=== PATIENT | female | born 1950 | race African-American/Black ===

== ENCOUNTER 2017-05-22 18:24 | Emergency (ER) | payer MEDICAID, MEDICARE, OTHER ==
[~2017-05-22] VITALS: Ht 167.6 cm; Wt 75.7 kg
[~2017-05-22 18:24] MED LIST: ACETAMINOPHEN-1 EAC1 ORAL; ALEVE220 M2 PO; ASPIRIN81 MG ORAL; BENADRYL25 MG ORAL; FLONASE1 SPRAYS; HYDROCORTISONE28 G2 TP; IBUPROFEN600 MG ORAL; LORATADINE10 M2 PO; METHOTREXATE2.5 MG PO; OMEPRAZOLE40 M1 ORAL; SIMVASTATIN10 MG ORAL; VALIUM5 MG ORAL
--- NOTE | 2017-05-22 18:51 | Emergency Room Report ---
History of Present Illness General Chief Complaint: Upper Respiratory Illness Present Illness HPI 66-year-old female presents to the emergency department complaining of cough, and nasal congestion, rhinorrhea and sore throat that is 8/10 in severity x4 days. Patient denies fevers, chills, neck pain or stiffness. Patient denies recent travel or ill contacts. Patient states she is up-to-date with vaccinations. Patient denies history of asthma, COPD or smoking. She denies rash. She denies changes in voice. Denies CP, Palpitations, LOC, AMS, dizziness , Changes in Vision, Sensation, paresthesias, or a sudden severe headache. Allergies: Coded Allergies: No Known Allergies (Unverified , 02/10/13) Patient History Past Medical History: see triage record Past Surgical History: none Pertinent Family History: none Now: No Immunizations: UTD Reviewed Nursing Documentation: PMH: Agreed, PSxH: Agreed Nursing Documentation-PMH Hx Cardiac Problems: No Hx Cancer: No Hx Neurological Problems: No Review of Systems All Other Systems: negative except mentioned in HPI Physical Exam Vital Signs Date Time Temp Pulse Resp B/P (MAP) Pulse Ox O2 Delivery O2 Flow Rate FiO2 05/22/17 18:40 98.4 94 18 155/80 97 Room Air Sp02 EP Interpretation: reviewed, normal General Appearance: no apparent distress, alert, GCS 15, non-toxic Head: normocephalic, atraumatic Eyes: bilateral eye normal inspection, bilateral eye PERRL ENT: hearing grossly normal, normal pharynx, no angioedema, normal voice, TMs + canals normal, uvula midline, moist mucus membranes, nasal congestion, pharyngeal erythema, other - no exudates Neck: full range of motion, no meningismus, no bony tend, other - surgical scar midline neck no infeciton noted. Respiratory: chest non-tender, lungs clear, normal breath sounds, no wheezing, speaking full sentences Cardiovascular #1: regular rate, rhythm Musculoskeletal: back normal, gait/station normal, normal range of motion, non- tender Neurologic: alert, oriented x3, responsive, motor strength/tone normal, sensory intact, speech normal Skin: normal color, no rash, warm/dry, well hydrated Lymphatic: no adenopathy Medical Decision Making PA Attestation Dr. Workman is my supervising Physician whom patient management has been discussed with. Diagnostic Impression: Primary Impression: Upper respiratory infection, viral Additional Impressions: Pharyngitis Qualified Codes: J02.9 - Acute pharyngitis, unspecified Post-nasal drainage ER Course 66-year-old female presents to the emergency department complaining of cough, and nasal congestion, rhinorrhea and sore throat that is 8/10 in severity x4 days. Patient denies fevers, chills, neck pain or stiffness. Patient denies recent travel or ill contacts. Patient states she is up-to-date with vaccinations. Patient denies history of asthma, COPD or smoking. She denies rash. She denies changes in voice. Denies CP, Palpitations, LOC, AMS, dizziness , Changes in Vision, Sensation, paresthesias, or a sudden severe headache. Ddx considered but are not limited to URI, pneumonia, PE, strep pharyngitis, meningitis. Vital signs: Pt. is afebrile, the remaining VS are WNL H&PE are most consistent with URI- no meningeal signs, oropharynx is not involved, no evidence of bacterial infection at this time. Moderate PND visualized on exam. ORDERS: none required at this time, the diagnosis is clinical ED INTERVENTIONS: None required at this time. --PT. EDUCATION: Discussed antibiotic resistance with inappropriate prescribing of antibiotics for viral illnesses. Discussed signs and symptoms to indicate viral illness versus bacterial illness. I do not suspect an emergent condition at this time. with current presentation pt. is stable for close outpatient follow up with conservative treatments. D/w pt. to return to ED with worsening or new symptoms. DISCHARGE: At this time pt. is stable for d/c to home. Will provide printed patient care instructions, and any necessary prescriptions. Care plan and follow up instructions have been discussed with the patient prior to discharge. Last Vital Signs Date Time Temp Pulse Resp B/P (MAP) Pulse Ox O2 Delivery O2 Flow Rate FiO2 05/22/17 18:40 98.4 94 18 155/80 97 Room Air Disposition: HOME, SELF-CARE Condition: Stable Scripts Cetirizine Hcl/Pseudoephedrine (ZYRTEC-D TABLET) 1 Each Tab.er.12h 1 EACH ORAL Q12HR for 10 Days, #20 TAB Prov: Jillian Hassan P.Tammie 05/22/17 Guaifenesin (Guaifenesin) 1,200 Mg Tab.er.12h 1200 MG PO BID for 10 Days, #20 TAB Prov: Jillian Hassan 05/22/17 Codeine/Promethazine Hcl* (PROMETHAZINE-CODEINE SYRUP*) 118 Ml Syrup 5 ML ORAL Q6H Y for For Cough, #118 ML 0 Refills Prov: Jillian Hassan 05/22/17 Patient Instructions: Pharyngitis, [id number], Upper Respiratory Infection, Adult Additional Instructions: Take medications as directed. Follow up with a Primary Care Provider in 3-5 days, even if your symptoms have resolved. --Please review list of primary care clinics, if you do not already have a primary care provider Return sooner to ED if new symptoms occur, or current symptoms become worse. Do not drink alcohol, drive, or operate heavy machinery while taking cough syrup as this may cause drowsiness. - Please note that this Emergency Department Report was dictated using [employer] forming machine tender technology software, occasionally this can lead to erroneous entry secondary to interpretation by the dictation equipment. Jillian Hassan May 22, 2017 18:51
[2017-05-22] MEDS ORDERED: LORazepam Inj 2mg/ml 1ml ONE (18:57)
[2017-05-22] MEDS ORDERED: Haloperidol 5mg/ml Inj ONE (18:57)
[2017-05-22] MEDS ORDERED: DiphenhydrAMINE 50mg/ml Inj ONE (18:57)
[2017-05-22] MEDS ORDERED: GUAIFENESIN1200 MG PO (19:10)
[2017-05-22] MEDS ORDERED: ZYRTEC-D TABLE1 EACH ORAL (19:10)
[2017-05-22] MEDS ORDERED: PROMETHAZINE-C118 M1 ORAL (19:10)
[2017-05-22 19:19] VITALS: BP 155/80
== END 2017-05-22 19:19 | disposition home or self-care (01) ==
LOC: EMR 18:54
DX: J06.9 Acute upper respiratory infection, unspecified (principal); J02.9 Acute pharyngitis, unspecified; R09.82 Postnasal drip
CPT/HCPCS: 99284

== ENCOUNTER 2018-02-18 19:10 | Emergency (ER) | payer OTHER, MEDICAID ==
[~2018-02-18] VITALS: Ht 167.6 cm; Wt 70.3 kg
[~2018-02-18 19:10] MED LIST changes: +GUAIFENESIN1200 MG PO; +PROMETHAZINE-C118 M1 ORAL; +ZYRTEC-D TABLE1 EACH ORAL
--- NOTE | 2018-02-18 20:05 | Emergency Room Report ---
History of Present Illness General Chief Complaint: Pain Source: Patient Present Illness HPI 67-year-old female presents to the emergency department complaining of 8 out of 10 in severity pain to the right thumb status post hitting her hand on a wall while cleaning last week and she has been having continued pain. Patient also reports sore throat 2 days. Patient denies fevers or chills she reports mild nasal congestion she states her symptoms began after sleeping with a fan pointed directly on her. Patient denies cough, neck pain or stiffness, headache , chest pain or palpitations. Denies numbness tingling or loss of sensation or gross motor movements of the extremities, incontinence of bowel or bladder. Denies AMS, dizziness, Changes in Vision, weakness or a sudden severe headache. Allergies: Coded Allergies: No Known Allergies (Unverified , 02/10/13) Patient History Past Medical History: see triage record, other - RA Past Surgical History: none Pertinent Family History: none Last Menstrual Period: NA Now: No Reviewed Nursing Documentation: PMH: Agreed; PSxH: Agreed Nursing Documentation-PMH Hx Cardiac Problems: No Hx Cancer: No Hx Neurological Problems: No Review of Systems All Other Systems: negative except mentioned in HPI Physical Exam Vital Signs Date Time Temp Pulse Resp B/P (MAP) Pulse Ox O2 Delivery O2 Flow Rate FiO2 02/18/18 19:22 98.1 81 18 135/68 98 Room Air 98.1 Sp02 EP Interpretation: reviewed, normal General Appearance: no apparent distress, alert, GCS 15, non-toxic Head: normocephalic, atraumatic Eyes: bilateral eye normal inspection, bilateral eye PERRL ENT: hearing grossly normal, normal voice, TMs + canals normal, uvula midline, moist mucus membranes, other - No tonsillar swelling or exudates. Neck: full range of motion, no meningismus Respiratory: lungs clear, normal breath sounds, speaking full sentences Cardiovascular #1: regular rate, rhythm, no edema, normal capillary refill Cardiovascular #2: 2+ radial (R), 2+ radial (L) Musculoskeletal: back normal, gait/station normal, normal range of motion, non- tender Neurologic: alert, oriented x3, responsive, motor strength/tone normal, sensory intact, speech normal, grossly normal Psychiatric: judgement/insight normal Skin: normal color, no rash, warm/dry, well hydrated Lymphatic: no adenopathy Medical Decision Making PA Attestation Dr. Fu is my supervising Physician whom patient management has been discussed with. Diagnostic Impression: Primary Impression: Pharyngitis Qualified Codes: J02.9 - Acute pharyngitis, unspecified Additional Impression: Contusion of thumb, right Qualified Codes: S60.011A - Contusion of right thumb without damage to nail, initial encounter ER Course 67-year-old female presents to the emergency department complaining of 8 out of 10 in severity pain to the right thumb status post hitting her hand on a wall while cleaning last week and she has been having continued pain. Patient also reports sore throat 2 days. Patient denies fevers or chills she reports mild nasal congestion she states her symptoms began after sleeping with a fan pointed directly on her. Patient denies cough, neck pain or stiffness, headache , chest pain or palpitations. Denies numbness tingling or loss of sensation or gross motor movements of the extremities, incontinence of bowel or bladder. Denies AMS, dizziness, Changes in Vision, weakness or a sudden severe headache. Ddx considered but are not limited to Fracture, dislocation, contusion, Sprain/ Strain/Spasm, strep, pharyngitis, postnasal drainage, CONTINUOUS IMPROVEMENT SPECIALIST just to name a few. Vital signs: are WNL, pt. is afebrile H&PE are most consistent with musculoskeletal injury will perform imaging to r/ o fractures/dislocations. ORDERS: - X-ray Right hand - negative for fx, Dislocation, or significant soft tissue injury, per preliminary read in ED, and signed by CARINA Hassan, my supervising physician has reviewed, and agrees with my interpretation. ED INTERVENTIONS: - Tylenol PO - Thumb spika Splint applied to right hand by photovoltaic testing technician. Pt. remains neurovascularly intact. --pls note. pt. taking methotrexate. DISCHARGE: At this time pt. is stable for d/c to home. Will provide printed patient care instructions, and any necessary prescriptions. Care plan and follow up instructions have been discussed with the patient prior to discharge. Other X-Ray Diagnostic Results Other X-Ray Diagnostic Results : X-Ray ordered: right hand # of Views/Limited Vs Complete: 3 View Indication: Pain EP Interpretation: Yes CARINA Xray: Interpretation reviewed, by supervising MD, and agrees with findings. Interpretation: no dislocation, no soft tissue swelling, no fractures, other - osteophytes and degenerative changes Impression: No acute disease Electronically Signed by: Jillian Hassan PA-C Last Vital Signs Date Time Temp Pulse Resp B/P (MAP) Pulse Ox O2 Delivery O2 Flow Rate FiO2 02/18/18 19:22 98.1 81 18 135/68 98 Room Air 98.1 Disposition: HOME, SELF-CARE Condition: Stable Scripts Lidocaine HCl 2% Viscous (Lidocaine HCl 2% Viscous) 100 Ml Solution 15 ML ORAL QID, #200 ML Prov: Jillian Hassan 02/18/18 Loratadine (CLARITIN) 10 Mg Capsule 10 MG ORAL DAILY, #14 CAP Prov: Jillian Hassan 02/18/18 Acetaminophen* (TYLENOL EXTRA STRENGTH*) 500 Mg Tablet 500 MG ORAL Q8H, #15 TAB 0 Refills Prov: Jillian Hassan 02/18/18 Acetaminophen* (TYLENOL EXTRA STRENGTH*) 500 Mg Tablet 500 MG ORAL Q6H, #15 TAB 0 Refills Prov: Jillian Hassan 02/18/18 Patient Instructions: Arthritis, [id number], Contusion, [id number], Sore Throat, Dczy-yw-Ghes Additional Instructions: Take medications as directed. Follow up with a Primary Care Provider in 3-5 days, even if your symptoms have resolved. --Please review list of primary care clinics, if you do not already have a primary care provider Return sooner to ED if new symptoms occur, or current symptoms become worse. - Please note that this Emergency Department Report was dictated using [employer] binding worker technology software, occasionally this can lead to erroneous entry secondary to interpretation by the dictation equipment. Jillian Hassan Feb 18, 2018 20:05
--- NOTE | 2018-02-18 20:38 | Diagnostic Imaging Report ---
EXAM: XR Right Hand Complete, 3 or More Views CLINICAL HISTORY: PAIN TECHNIQUE: Frontal, lateral and oblique views of the right hand. COMPARISON: No relevant prior studies available. FINDINGS: Bones/joints: Unremarkable. No acute fracture. No dislocation. Soft tissues: Unremarkable. No radiopaque foreign body. IMPRESSION: Normal right hand x-rays.
[2018-02-18] MEDS ORDERED: TYLENOL EXTRA500 MG ORAL ×2 (20:41→20:44)
[2018-02-18 20:44] VITALS: BP 153/84
[2018-02-18] MEDS ORDERED: CLARITIN10 M2 ORAL (20:44)
[2018-02-18] MEDS ORDERED: LIDOCAINE VISC100 ML ORAL (20:47)
[2018-02-18 20:51] VITALS: BP 153/84
== END 2018-02-18 20:56 | disposition home or self-care (01) ==
LOC: EMR 19:42
DX: S60.011A Contusion of right thumb without damage to nail, initial encounter (principal); W22.01XA Walked into wall, initial encounter; Y92.9 Unspecified place or not applicable; J02.9 Acute pharyngitis, unspecified
CPT/HCPCS: 99283

== ENCOUNTER 2019-01-26 13:04 | Emergency (ER) | payer OTHER, MEDICAID ==
[~2019-01-26] VITALS: Ht 167.6 cm; Wt 70.8 kg
[~2019-01-26 13:04] MED LIST changes: +CLARITIN10 M2 ORAL; +LIDOCAINE VISC100 ML ORAL; +TYLENOL EXTRA500 MG ORAL
--- NOTE | 2019-01-26 13:18 | NUR ---
ED Nurse Note: pt walked in due to left lower rib pain started 3 months ago, pt denies trauma. pt stated she was checked by the pcp, ultrasound was done to her and nothing was found as verbalized by the pt, pcp advised pt to go to the ed for xray of the chest. pt is complining of 7/10 pain. pt not in acute distress. will continue to monitor.
[2019-01-26 13:20] VITALS: BP 134/68
--- NOTE | 2019-01-26 13:37 | NUR ---
ED Nurse Note: pt was seen by paolo, pt able to give urine sample, blood drawn and sent to lab.
--- NOTE | 2019-01-26 13:45 | NUR ---
ED Nurse Note: pt went to ct with tech
[2019-01-26 13:47] LABS: HEMATOCRIT 36.5 % (37.0-47.0); MEAN CORPUSCULAR VOLUME 96 FL (80-99); NEUTROPHILS % (AUTO) 53.3 % (45.0-75.0); PLATELET COUNT 257 K/UL (150-450); WHITE BLOOD COUNT 4.9 K/UL (4.8-10.8)
[2019-01-26 13:48] LABS: BASOPHILS % (AUTO) 2.3 % (0.0-2.0); EOSINOPHILS % (AUTO) 2.3 % (0.0-3.0); LYMPHOCYTES % (AUTO) 28.9 % (20.0-45.0); MONOCYTES % (AUTO) 13.2 % (1.0-10.0)
--- NOTE | 2019-01-26 13:53 | NUR ---
ED Nurse Note: pt went back from ct with tech
[2019-01-26 13:58] LABS: ANION GAP 11 mmol/L (5-15); BLOOD UREA NITROGEN 15 mg/dL (7-18); CALCIUM 9.4 MG/DL (8.5-10.1); CARBON DIOXIDE 26 MMOL/L (21-32); CHLORIDE 108 MMOL/L (98-107); CREATININE 0.8 MG/DL (0.55-1.30); POTASSIUM 3.8 MMOL/L (3.5-5.1); SODIUM 145 MMOL/L (136-145)
[2019-01-26 14:03] LABS: ALANINE AMINOTRANSFERASE 20 U/L (12-78); ALBUMIN 3.6 G/DL (3.4-5.0); ALBUMIN/GLOBULIN RATIO 0.8 (1.0-2.7); ALKALINE PHOSPHATASE 72 U/L (46-116); ASPARTATE AMINO TRANSFERASE 10 U/L (15-37); BILIRUBIN,TOTAL 0.4 MG/DL (0.2-1.0)
[2019-01-26] MEDS ORDERED: Ketorolac 60mg Inj IM ONE (14:30)
[2019-01-26 14:33] LABS: APPEARANCE,URINE CLEAR; BILIRUBIN, URINE NEGATIVE (NEGATIVE); COLOR,URINE YELLOW; GLUCOSE, URINE (UA) NEGATIVE (NEGATIVE); KETONES,URINE NEGATIVE (NEGATIVE); LEUKOCYTE ESTERASE ,URINE NEGATIVE (NEGATIVE); NITRITE,URINE NEGATIVE (NEGATIVE); PH,URINE 7 (4.5-8.0); PROTEIN,URINE NEGATIVE (NEGATIVE); UROBILINOGEN,URINE 4 MG/DL (0.0-1.0)
[2019-01-26] MEDS ORDERED: TRAMADOL HCL50 MG ORAL (14:33)
[2019-01-26 14:45] VITALS: BP 134/68
--- NOTE | 2019-01-26 14:45 | NUR ---
ER DISCHARGE NOTE: Patient is cleared to be discharged per ERMD, pt is aox4, on room air, with stable vital signs. pt was given dc and prescription instructions, pt was able to verbalize understanding, pt id band removed without complications. pt is able to ambulate with steady gait. pt took all belongings.
--- NOTE | 2019-01-26 14:53 | Emergency Room Report ---
History of Present Illness General Chief Complaint: Pain Source: Patient, Medical Record Present Illness HPI Patient presents with complaints of fairly specific pinpoint discomfort left lower mid axillary rib cage discomfort Patient reports that she has been having discomfort there over the past 4 to 5 months she feels the pain uncomfortable When she touches the area also when she tries to stand up denies any other chest pain or shortness of breath denies any pleurisy Denies any vomiting or diarrhea denies any fevers or chills Denies any focal weakness Patient reports that she has had outside CAT scan imaging and ultrasound testing which have not shown any results Patient denies any abdominal pain denies any recent trauma however reports that 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 Patient also reports that her primary physician had mentioned possibly getting a picture of her chest Allergies: Coded Allergies: No Known Allergies (Unverified , 02/10/13) Patient History Past Medical History: see triage record Pertinent Family History: none Last Menstrual Period: N/A Reviewed Nursing Documentation: PMH: Agreed; PSxH: Agreed Nursing Documentation-PMH Past Medical History: No History, Except For Hx Cardiac Problems: No - RA Hx Cancer: No Hx Neurological Problems: No Review of Systems All Other Systems: negative except mentioned in HPI Physical Exam Vital Signs Date Time Temp Pulse Resp B/P (MAP) Pulse Ox O2 Delivery O2 Flow Rate FiO2 01/26/19 13:11 98.1 70 16 134/68 (90) 97 Room Air Sp02 EP Interpretation: reviewed, normal General Appearance: well appearing, no apparent distress Head: normocephalic, atraumatic Eyes: bilateral eye PERRL, bilateral eye EOMI ENT: hearing grossly normal, normal pharynx, TMs + canals normal, uvula midline Neck: full range of motion, supple, no meningismus, no bony tend Respiratory: lungs clear, normal breath sounds, no rhonchi, no respiratory distress, no retraction, no accessory muscle use Cardiovascular #1: regular rate, rhythm Gastrointestinal: non tender, soft Genitourinary: no CVA tenderness Musculoskeletal: other - Patient has fairly pinpoint specific discomfort over the mid axillary rib cage area on the lower aspect of the rib cage no obvious erythema or rash, no swelling Neurologic: alert, oriented x3, responsive Psychiatric: normal inspection Skin: no rash Lymphatic: normal inspection Medical Decision Making Diagnostic Impression: Primary Impression: Muscle strain of chest wall ER Course Patient has fairly pinpoint discomfort however given the duration of symptoms and no other imaging of the chest area CT was obtained there are some nonspecific findings which include Perihilar lymph nodes and also axillary lymph nodes that are larger than usual Otherwise no obvious rib cage reading or pathology Patient's blood work also remains stable from previous patient was discussed about her CAT scan findings She does have a primary physician and will require close follow-up Remains hemodynamically stable however given the nonspecific abnormalities Will require evaluation for differential such as carcinoma Labs Test 01/26/19 13:28 White Blood Count 4.9 K/UL (4.8-10.8) Red Blood Count 3.80 M/UL (4.20-5.40) Hemoglobin 12.0 G/DL (12.0-16.0) Hematocrit 36.5 % (37.0-47.0) Mean Corpuscular Volume 96 FL (80-99) Mean Corpuscular Hemoglobin 31.5 PG (27.0-31.0) Mean Corpuscular Hemoglobin Concent 32.8 G/DL (32.0-36.0) Red Cell Distribution Width 16.0 % (11.6-14.8) Platelet Count 257 K/UL (150-450) Mean Platelet Volume 5.8 FL (6.5-10.1) Neutrophils (%) (Auto) 53.3 % (45.0-75.0) Lymphocytes (%) (Auto) 28.9 % (20.0-45.0) Monocytes (%) (Auto) 13.2 % (1.0-10.0) Eosinophils (%) (Auto) 2.3 % (0.0-3.0) Basophils (%) (Auto) 2.3 % (0.0-2.0) Urine Color Yellow Urine Appearance Clear Urine pH 7 (4.5-8.0) Urine Specific [place] 1.015 (1.005-1.035) Urine Protein Negative (NEGATIVE) Urine Glucose (UA) Negative (NEGATIVE) Urine Ketones Negative (NEGATIVE) Urine Blood Negative (NEGATIVE) Urine Nitrite Negative (NEGATIVE) Urine Bilirubin Negative (NEGATIVE) Urine Urobilinogen 4 MG/DL (0.0-1.0) Urine Leukocyte Esterase Negative (NEGATIVE) Sodium Level 145 MMOL/L (136-145) Potassium Level 3.8 MMOL/L (3.5-5.1) Chloride Level 108 MMOL/L (98-107) Carbon Dioxide Level 26 MMOL/L (21-32) Anion Gap 11 mmol/L (5-15) Blood Urea Nitrogen 15 mg/dL (7-18) Creatinine 0.8 MG/DL (0.55-1.30) Estimat Glomerular Filtration Rate > 60 mL/min (>60) Glucose Level 98 MG/DL (74-106) Calcium Level 9.4 MG/DL (8.5-10.1) Total Bilirubin 0.4 MG/DL (0.2-1.0) Aspartate Amino Transf (AST/SGOT) 10 U/L (15-37) Alanine Aminotransferase (ALT/SGPT) 20 U/L (12-78) Alkaline Phosphatase 72 U/L (46-116) Total Protein 8.3 G/DL (6.4-8.2) Albumin 3.6 G/DL (3.4-5.0) Globulin 4.7 g/dL Albumin/Globulin Ratio 0.8 (1.0-2.7) Lipase 143 U/L (73-393) Urine Opiates Screen Negative (NEGATIVE) Urine Barbiturates Screen Negative (NEGATIVE) Phencyclidine (PCP) Screen Negative (NEGATIVE) Urine Amphetamines Screen Negative (NEGATIVE) Urine Benzodiazepines Screen Negative (NEGATIVE) Urine Cocaine Screen Negative (NEGATIVE) Urine Marijuana (THC) Screen Positive (NEGATIVE) CT/MRI/US Diagnostic Results CT/MRI/US Diagnostic Results : Impression CT chest: Nonspecific perihilar lymph nodes, shotty nonspecific lymph nodes in the axilla Last Vital Signs Date Time Temp Pulse Resp B/P (MAP) Pulse Ox O2 Delivery O2 Flow Rate FiO2 01/26/19 13:20 98.1 70 16 134/68 97 Room Air Status: improved Disposition: HOME, SELF-CARE Condition: Improved Scripts Tramadol Hcl* (ULTRAM*) 50 Mg Tablet 50 MG ORAL Q8HR PRN for For Pain, #20 TAB 0 Refills Prov: Abelino Zee DO 01/26/19 Referrals: [facility],REFERRING (PCP) [facility] Patient Instructions: Costochondritis, [id number] Additional Instructions: The CAT scan of the chest today has shown some abnormalities. It does reveal mildly prominent mediastinal lymph nodes nonspecific axillary lymph nodes. While these are nonspecific and do not appear to be the main reason for your left lower rib cage pain they do require close outpatient follow-up. These can be signs of different types of medical conditions such as cancer. Patient is provided with the discharge instructions notified to follow up with primary doctor in the next 2-3 days otherwise return to the er with any worsening symptoms. Please note that this report is being documented using [employer] technology. This can lead to erroneous entry secondary to incorrect interpretation by the dictating instrument. Abelino Zee DO Jan 26, 2019 14:53
--- NOTE | 2019-01-27 11:34 | Diagnostic Imaging Report ---
Indication: Chest pain Technique: Continuous helical transaxial imaging of the chest was obtained from the thoracic inlet to the upper abdomen. No intravenous contrast was administered. Coronal 2-D reformats were also obtained. Total Dose length Product (DLP): 647.[address] Dose Index Volume (CTDIvol): 17.67 mGy Comparison: none Findings: There are reticular densities at the lung bases nonspecific. Some hiatal hernia is present. Tiny hypodensity left kidney too small to characterize. There is a small Bochdalek hernia posterior medial right lung base. No airspace disease identified. No adenopathy seen. Minimal calcification of aorta noted. IMPRESSION: No acute findings. Basilar interstitial opacities nonspecific. Atherosclerotic disease Tiny hypodensity in the left kidney too small to characterize on this study. [facility] has communicated the preliminary results to the Emergency Department. Their findings are largely concordant with this report. The CT scanner at [facility] is accredited by the [employer] and the scans are performed using dose optimization techniques as appropriate to a performed exam including Automatic Exposure control.
== END 2019-01-26 14:45 | disposition home or self-care (01) ==
LOC: EMR 13:42
DX: S29.011A Strain of muscle and tendon of front wall of thorax, initial encounter (principal); X58.XXXA Exposure to other specified factors, initial encounter; Y92.9 Unspecified place or not applicable; M06.9 Rheumatoid arthritis, unspecified
CPT/HCPCS: 36415; 71250; 80053; 80307; 81003; 83690; 85025; 96372; 99284

== ENCOUNTER 2019-09-27 09:36 | Emergency (ER) | payer OTHER, MEDICAID ==
[~2019-09-27] VITALS: Ht 170.2 cm; Wt 72.6 kg
[~2019-09-27 09:36] MED LIST changes: +TRAMADOL HCL50 MG ORAL
--- NOTE | 2019-09-27 09:49 | NUR ---
ED Nurse Note: Pt walked in from home c/o sore throat and dizziness x 1 week. Pt denies fever/nausea/vomiting/diarrhea. Pt reports right shoulder pain x 1 month, but denies injury. Respirations even and unlabored on room air. Vitals stable as documented.
[2019-09-27 09:55] VITALS: BP 134/69
[2019-09-27] MEDS ORDERED: GABAPENTIN100 MG ORAL (09:58)
[2019-09-27] MEDS ORDERED: FOLIC ACID1 MG ORAL (09:58)
[2019-09-27] MEDS ORDERED: VITAMIN D32400 UNIT/ MC (09:58)
[2019-09-27] MEDS ORDERED: RESTASIS1 EACH BOTH EYES (09:58)
[2019-09-27] MEDS ORDERED: Acetaminophen 500mg (ES) tab ORAL ONE (10:00)
[2019-09-27] MEDS ORDERED: Ketorolac 30mg Inj IM ONE (10:00)
[2019-09-27] MEDS ORDERED: Albuterol ud Inhalation HHN ONE (10:00)
[2019-09-27 10:29] LABS: ANION GAP 14 mmol/L (5-15); BLOOD UREA NITROGEN 9 mg/dL (7-18); CALCIUM 9.3 MG/DL (8.5-10.1); CARBON DIOXIDE 24 MMOL/L (21-32); CHLORIDE 105 MMOL/L (98-107); CREATININE 0.8 MG/DL (0.55-1.30); SODIUM 143 MMOL/L (136-145)
[2019-09-27 10:30] LABS: BASOPHILS % (AUTO) 0.8 % (0.0-2.0); EOSINOPHILS % (AUTO) 0.7 % (0.0-3.0); HEMATOCRIT 36.4 % (37.0-47.0); HEMOGLOBIN 12.4 G/DL (12.0-16.0); LYMPHOCYTES % (AUTO) 9.4 % (20.0-45.0); MEAN CORPUSCULAR VOLUME 94 FL (80-99); MONOCYTES % (AUTO) 8.6 % (1.0-10.0); NEUTROPHILS % (AUTO) 80.4 % (45.0-75.0); PLATELET COUNT 236 K/UL (150-450); RED BLOOD COUNT 3.88 M/UL (4.20-5.40); RED CELL DISTRIBUTION WIDTH 11.9 % (11.6-14.8); WHITE BLOOD COUNT 10.2 K/UL (4.8-10.8)
[2019-09-27 10:34] LABS: ALANINE AMINOTRANSFERASE 20 U/L (12-78); ALBUMIN 3.1 G/DL (3.4-5.0); ALBUMIN/GLOBULIN RATIO 0.6 (1.0-2.7); ALKALINE PHOSPHATASE 79 U/L (46-116); ASPARTATE AMINO TRANSFERASE 15 U/L (15-37); BILIRUBIN,TOTAL 0.3 MG/DL (0.2-1.0)
--- NOTE | 2019-09-27 10:38 | Emergency Room Report ---
History of Present Illness General Chief Complaint: Generalized Weakness Source: Patient Present Illness HPI Patient is a 69-year-old female who presents the ER complaining of flulike symptoms for the past week. Patient complains of generalized body aches, weakness, cough, nasal congestion and wheezing. She denies any chest pain or shortness of breath. She denies any recent travel. She denies any history of smoking. She denies any abdominal pain, nausea or vomiting. She denies any recent travel. Patient is ambulatory and accompanied by her niece. Allergies: Coded Allergies: No Known Allergies (Unverified , 02/10/13) Patient History Reviewed Nursing Documentation: PMH: Agreed; PSxH: Agreed Nursing Documentation-PMH Hx Cardiac Problems: Yes - enlarged heart Hx Cancer: No Hx Neurological Problems: No Review of Systems All Other Systems: negative except mentioned in HPI Physical Exam Vital Signs Date Time Temp Pulse Resp B/P (MAP) Pulse Ox O2 Delivery O2 Flow Rate FiO2 09/27/19 09:39 97.9 115 22 134/69 (90) 93 Room Air Sp02 EP Interpretation: reviewed, normal General Appearance: no apparent distress, alert, GCS 15, non-toxic Head: normocephalic, atraumatic Eyes: bilateral eye normal inspection, bilateral eye PERRL ENT: hearing grossly normal, no angioedema, normal voice, dry mucus membranes Neck: full range of motion, supple/symm/no masses Respiratory: chest non-tender, speaking full sentences, wheezing Cardiovascular #1: no edema, tachycardia Cardiovascular #2: 2+ carotid (R), 2+ carotid (L), 2+ radial (R), 2+ radial (L) , 2+ dorsalis pedis (R), 2+ dorsalis pedis (L) Gastrointestinal: normal bowel sounds, non tender, soft, non-distended, no guarding, no rebound Rectal: deferred Genitourinary: normal inspection, no CVA tenderness Musculoskeletal: back normal, normal range of motion, calf tenderness, gait/ station normal, non-tender Neurologic: alert, motor strength/tone normal, oriented x3, sensory intact, responsive, speech normal Psychiatric: judgement/insight normal, memory normal, mood/affect normal, no suicidal/homicidal ideation Skin: no rash Lymphatic: no adenopathy Medical Decision Making Diagnostic Impression: Primary Impression: Bronchopneumonia ER Course Patient treated with nebulizer treatment and IV antibiotics. Lactate less than 2. Vital signs have been stable. She describes improvement after IV fluids as well as fever control. After discussing risks and benefits of further diagnostics, treatment plans, as well as indications for and risks of admission , the patient is agreeable to being discharged home. I have explained that their evaluation and treatment in the emergency department today is an important step towards them achieving better health but that their evaluation today is not intended to replace further evaluation and treatment by a physician in their local clinic. I have explained that while the current findings suggest no immediate life threatening emergency they will require further evaluation and treatment by a physician of their choice in their area. They understand that it will be necessary for them to review the final reports of their ED visit with their clinic physician. We have reviewed indications for return to the Emergency Department. I have explained that additional time may need to pass and/or additional testing as an outpatient may be necessary before a definitive diagnosis can be made. They tell me they are willing to follow up as instructed within the timeframe I recommend. They appear to understand what we discussed. Additionally they understand that if they are unable to be seen by an outpatient physician they are welcome, and in fact should, return to the Emergency Department for a repeat evaluation. The patient is stable at time of discharge. EKG Diagnostic Results EKG Time: 10:16 EP Interpretation: MD Ava Rate: tachycardiac ST Segments: no acute changes ASA given to the pt in ED: No Rhythm Strip Diag. Results Rhythm Strip Time: 10:38 EP Interpretation: yes - MD Ava Rate: 98 Rhythm: no PVC's, no ectopy Last Vital Signs Date Time Temp Pulse Resp B/P (MAP) Pulse Ox O2 Delivery O2 Flow Rate FiO2 09/27/19 09:55 97.9 106 22 134/69 94 Room Air Disposition: HOME, SELF-CARE Condition: Stable Scripts Levofloxacin* (LEVAQUIN*) 750 Mg Tablet 750 MG ORAL DAILY for 7 Days, TAB Prov: Eliza Escalante M.D. 09/27/19 Ibuprofen* (MOTRIN*) 600 Mg Tablet 600 MG ORAL Q8H PRN for For Pain, #30 TAB 0 Refills Prov: Eliza Escalante M.D. 09/27/19 Albuterol Sulfate* (ALBUTEROL SULFATE MDI*) 8.5 Gm Hfa.aer.ad 2 PUFF INH Q4H PRN for cough/wheezing, #1 EA 0 Refills Prov: Eliza Escalante M.D. 09/27/19 Referrals: [facility],REFERR[facility] (PCP) Additional Instructions: Patient discharged in stable improved condition with outpatient follow-up and strict return precautions Eliza Escalante M.D. Sep 27, 2019 10:38
--- NOTE | 2019-09-27 11:02 | NUR ---
ED Nurse Note: pt resting in bed without s/s of distress. vital signs stable as documented.
[2019-09-27 11:03] VITALS: BP 145/72
[2019-09-27 11:06] LABS: APPEARANCE,URINE CLEAR; BILIRUBIN, URINE NEGATIVE (NEGATIVE); COLOR,URINE PALE YELLOW; GLUCOSE, URINE (UA) NEGATIVE (NEGATIVE); KETONES,URINE NEGATIVE (NEGATIVE); LEUKOCYTE ESTERASE ,URINE NEGATIVE (NEGATIVE); NITRITE,URINE NEGATIVE (NEGATIVE); PH,URINE 7 (4.5-8.0); PROTEIN,URINE NEGATIVE (NEGATIVE); UROBILINOGEN,URINE NORMAL MG/DL (0.0-1.0)
[2019-09-27] MEDS ORDERED: IBUPROFEN600 MG ORAL (11:49)
[2019-09-27] MEDS ORDERED: ALBUTEROL SULF8.5 GM INH (11:49)
[2019-09-27] MEDS ORDERED: LEVAQUIN750 MG ORAL (11:49)
--- NOTE | 2019-09-27 12:05 | NUR ---
ED Nurse Note: Pt discharged, pt just awaiting antibiotic therapy to be finished before departing
[2019-09-27] MEDS ORDERED: GUAIFENESIN-CO118 M1 ORAL (12:11)
--- NOTE | 2019-09-27 12:17 | Diagnostic Imaging Report ---
Indication: Dyspnea Comparison: 04/14/2014 A single view chest radiograph was obtained. Findings: Cardiomediastinal appearance is within normal limits for age. The lungs are clear. Pulmonary vascularity is appropriate. The diaphragmatic contour is smooth and costophrenic angles are sharp. No pleural effusions are identified. The bones are unremarkable. Impression: No acute findings
[2019-09-27 12:27] VITALS: BP 142/75
--- NOTE | 2019-09-27 12:27 | NUR ---
ER DISCHARGE NOTE: Patient is cleared to be discharged per ERMD, pt is aox4, on room air, with stable vital signs as documented. pt was given dc and prescription instructions, pt was able to verbalize understanding, pt id band and iv site removed without complications. pt is able to ambulate with steady gait. pt took all belongings.
== END 2019-09-27 12:27 | disposition home or self-care (01) ==
LOC: EMR 10:08
DX: J18.0 Bronchopneumonia, unspecified organism (principal); R53.1 Weakness
CPT/HCPCS: 36415; 71045; 80053; 81003; 83605; 83735; 85025; 85610; 85730; 86710; 87040; 93005; 96361; 96365; 96372; 99284; J1885; J1956; J7030

== ENCOUNTER 2020-05-03 21:30 | Emergency (ER) | payer OTHER, MEDICAID ==
[~2020-05-03] VITALS: Ht 170.2 cm; Wt 77.1 kg
[~2020-05-03 21:30] MED LIST changes: +ALBUTEROL SULF8.5 GM INH; +FOLIC ACID1 MG ORAL; +GABAPENTIN100 MG ORAL; +GUAIFENESIN-CO118 M1 ORAL; +LEVAQUIN750 MG ORAL; +RESTASIS1 EACH BOTH EYES; +VITAMIN D32400 UNIT/ MC
--- NOTE | 2020-05-03 21:50 | NUR ---
ED Nurse Note: wheelchair assist to ed c/o LT leg tingling and pain for 3 days. Pt denies fall and trauma. PT stated she is ambulatory at home; but pain is 10/10, sharp and tingling. Pt stated LT hip is slightly swollen. hx rheumatoid arthritis. changed into gown; attached to monitor. patient ao4 with no acute distress while immobile. facial grimacing noted upon movement of left lower extremity; localized to hip. vitals stable. all safety measures met.
--- NOTE | 2020-05-03 22:00 | NUR ---
ED Nurse Note: iv access established. blood collected; sent down to lab. unable to collect urine at this time; patient states will provide when able; refused straight cath. imaging done at bedside with respiratory support technician.
--- NOTE | 2020-05-03 22:06 | Emergency Room Report ---
History of Present Illness General Chief Complaint: Lower Extremity Injury Source: Patient Present Illness HPI The patient presents with 2 to 3 days of left hip pain. She also feels swelling in that area. The pain is severe. She tried Tylenol with minimal relief. She denies any fevers or chills. There was no trauma. 2 weeks ago she had some bite on her leg but this seems to have resolved. There is no calf pain or edema. She rates the pain 10/10. It is aching and worse when she tries to move the hip or walk. It is nonradiating. She denies any numbness. No sore throat, chest pain, palpitations, nausea, vomiting, diarrhea, dysuria, abdominal pain, shortness of breath, depression, anxiety, visual changes, dizziness, headache. Allergies: Coded Allergies: No Known Allergies (Unverified , 02/10/13) COVID-19 Screening Contact w/high risk pt: No Experienced COVID-19 symptoms?: No COVID-19 Testing performed [employer]IN[employer] IN[employer]CTOR: No Patient History Past Medical History: see triage record Past Surgical History: hysterectomy, other - Lumpectomy Social History: Denies: smoking Social History Narrative Brought to emergency department by cousin Reviewed Nursing Documentation: PMH: Agreed; PSxH: Agreed Nursing Documentation-PMH Hx Cardiac Problems: Yes - enlarged heart Hx Cancer: No Hx Neurological Problems: No Review of Systems All Other Systems: negative except mentioned in HPI Physical Exam Vital Signs Date Time Temp Pulse Resp B/P (MAP) Pulse Ox O2 Delivery O2 Flow Rate FiO2 05/03/20 21:40 98.8 107 16 113/72 (86) 98 Room Air Sp02 EP Interpretation: reviewed, normal General Appearance: well appearing, no apparent distress, GCS 15 Head: normocephalic Eyes: bilateral eye normal inspection, bilateral eye PERRL, bilateral eye EOMI ENT: other - Wearing a mask Neck: supple Respiratory: lungs clear, normal breath sounds Cardiovascular #1: regular rate, rhythm Cardiovascular #2: 2+ radial (R), 2+ dorsalis pedis (L) Gastrointestinal: normal inspection, normal bowel sounds, non tender, no mass, non-distended Musculoskeletal: back normal, no calf tenderness, pelvis stable, gait/station normal, tender - Left hip with compression and passive range of motion lower back nontender Neurologic: alert, distal neuro normal, oriented x3 Psychiatric: mood/affect normal Skin: no rash - In particular no evidence of prior bite, warm/dry Medical Decision Making Diagnostic Impression: Primary Impression: Left hip pain Additional Impressions: Arthritis UTI (urinary tract infection) Qualified Codes: N30.00 - Acute cystitis without hematuria ER Course Patient presents with left hip pain. Differential includes bursitis, gout, arthritis, septic hip amongst others. She has no fever and therefore the latter is less likely. Evaluation with x-rays and labs. Patient treated with a dose of Toradol. Labs remarkable for normal white count. Elevated C-reactive protein. Hip x-ray with degenerative changes. Urinalysis with pyuria. Macrobid given for UTI. Patient improved after Toradol. Pain is decreased to 5/10. She declines more pain medication at this time. Patient ambulatory without limp. Patient stable for outpatient observation and treatment. Laboratory Tests Test 05/03/20 22:15 05/03/20 23:20 White Blood Count 8.8 K/UL (4.8-10.8) Red Blood Count 3.75 M/UL (4.20-5.40) L Hemoglobin 12.2 G/DL (12.0-16.0) Hematocrit 37.1 % (37.0-47.0) Mean Corpuscular Volume 99 FL (80-99) Mean Corpuscular Hemoglobin 32.6 PG (27.0-31.0) H Mean Corpuscular Hemoglobin Concent 33.0 G/DL (32.0-36.0) Red Cell Distribution Width 13.6 % (11.6-14.8) Platelet Count 249 K/UL (150-450) Mean Platelet Volume 7.4 FL (6.5-10.1) Neutrophils (%) (Auto) 76.0 % (45.0-75.0) H Lymphocytes (%) (Auto) 14.2 % (20.0-45.0) L Monocytes (%) (Auto) 6.7 % (1.0-10.0) Eosinophils (%) (Auto) 0.2 % (0.0-3.0) Basophils (%) (Auto) 2.8 % (0.0-2.0) H Erythrocyte Sedimentation Rate 85 MM/HR (0-30) H Prothrombin Time 11.1 SEC (9.30-11.50) Prothrombin Time INR 1.0 (0.9-1.1) Activated Partial Thromboplast Time 27 SEC (23-33) Uric Acid 4.7 MG/DL (2.6-7.2) C-Reactive Protein, Quantitative 5.6 mg/dL (0.00-0.90) H Urine Color Pale yellow Urine Appearance Clear Urine pH 5 (4.5-8.0) Urine Specific [place] 1.010 (1.005-1.035) Urine Protein Negative (NEGATIVE) Urine Glucose (UA) Negative (NEGATIVE) Urine Ketones Negative (NEGATIVE) Urine Blood Negative (NEGATIVE) Urine Nitrite Negative (NEGATIVE) Urine Bilirubin Negative (NEGATIVE) Urine Urobilinogen Normal MG/DL (0.0-1.0) Urine Leukocyte Esterase 3+ (NEGATIVE) H Urine RBC 0-2 /HPF (0 - 2) Urine WBC 15-20 /HPF (0 - 2) H Urine Squamous Epithelial Cells Occasional /LPF Urine Transitional Epithelial Cells Few /LPF (NONE) H Urine Bacteria Occasional /HPF (NONE) Other X-Ray Diagnostic Results Other X-Ray Diagnostic Results : X-Ray ordered: Left hip # of Views/Limited Vs Complete: 3 View Indication: Pain EP Interpretation: Yes Interpretation: no dislocation, no soft tissue swelling, no fractures, other - Degenerative changes Impression: Other Electronically Signed by: Electronically signed by Duong Florez MD Last Vital Signs Date Time Temp Pulse Resp B/P (MAP) Pulse Ox O2 Delivery O2 Flow Rate FiO2 05/04/20 01:00 98.8 89 16 113/72 98 Room Air Status: improved Disposition: HOME, SELF-CARE Condition: Improved Scripts Ibuprofen* (MOTRIN*) 600 Mg Tablet 600 MG ORAL Q8H PRN for FOR PAIN, #16 TAB 0 Refills Prov: Duong Florez MD 05/04/20 Nitrofurantoin Monohyd/M-Cryst* (MACROBID 100 MG*) 100 Mg Capsule 100 MG ORAL EVERY 12 HOURS, #14 CAP Prov: Duong Florez MD 05/04/20 Referrals: NON PHYSICIAN (PCP) Duong Florez MD May 03, 2020 22:06
[2020-05-03] MEDS ORDERED: Ketorolac 30mg Inj IV ONE (22:15)
[2020-05-03 22:28] LABS: BASOPHILS % (AUTO) 2.8 % (0.0-2.0); EOSINOPHILS % (AUTO) 0.2 % (0.0-3.0); HEMATOCRIT 37.1 % (37.0-47.0); HEMOGLOBIN 12.2 G/DL (12.0-16.0); LYMPHOCYTES % (AUTO) 14.2 % (20.0-45.0); MEAN CORPUSCULAR VOLUME 99 FL (80-99); MONOCYTES % (AUTO) 6.7 % (1.0-10.0); PLATELET COUNT 249 K/UL (150-450); RED BLOOD COUNT 3.75 M/UL (4.20-5.40); RED CELL DISTRIBUTION WIDTH 13.6 % (11.6-14.8); WHITE BLOOD COUNT 8.8 K/UL (4.8-10.8)
[2020-05-03 22:37] VITALS: BP 113/72
--- NOTE | 2020-05-03 22:59 | NUR ---
ED Nurse Note: patient reports relief of pain after analgesic administration. provided patient with water to aid with diuresis.
--- NOTE | 2020-05-03 23:03 | Diagnostic Imaging Report ---
EXAM: XR Left Hip With Pelvis When Performed, 1 View CLINICAL HISTORY: PAIN TECHNIQUE: Frontal view of the left hip with pelvis when performed. COMPARISON: No relevant prior studies available. FINDINGS: Bones/joints: No acute fracture or traumatic malalignment. Soft tissues: Unremarkable. IMPRESSION: No acute findings in the left hip.
[2020-05-03 23:32] LABS: APPEARANCE,URINE CLEAR; BILIRUBIN, URINE NEGATIVE (NEGATIVE); COLOR,URINE PALE YELLOW; GLUCOSE, URINE (UA) NEGATIVE (NEGATIVE); KETONES,URINE NEGATIVE (NEGATIVE); LEUKOCYTE ESTERASE ,URINE 3+ (NEGATIVE); NITRITE,URINE NEGATIVE (NEGATIVE); PH,URINE 5 (4.5-8.0); PROTEIN,URINE NEGATIVE (NEGATIVE); UROBILINOGEN,URINE NORMAL MG/DL (0.0-1.0)
[2020-05-04] VITALS: BP 121/76
[2020-05-04] MEDS ORDERED: IBUPROFEN600 M1 ORAL (00:50)
[2020-05-04] MEDS ORDERED: NITROFURANTOIN100 M2 ORAL (00:50)
[2020-05-04 01:00] VITALS: BP 113/72
--- NOTE | 2020-05-04 01:00 | NUR ---
ER DISCHARGE NOTE: Patient is cleared to be discharged per ERMD, pt is aox4, on room air, with stable vital signs. pt was given dc and prescription instructions, pt was able to verbalize understanding, pt id band and iv site removed without complications. pt is able to ambulate with steady gait. pt took all belongings.
== END 2020-05-04 01:00 | disposition home or self-care (01) ==
LOC: EMR 21:55
DX: M25.552 Pain in left hip (principal); M19.90 Unspecified osteoarthritis, unspecified site; N30.00 Acute cystitis without hematuria
CPT/HCPCS: 36415; 73502; 81001; 84550; 85025; 85610; 85651; 85730; 86140; 87086; 96374; 99284; J1885